=== PATIENT | male | born 1995 | race Caucasian/White ===

== ENCOUNTER 2020-06-30 12:36 | Emergency (ER) | payer OTHER ==
[2020-06-30 13:13] LABS: BILIRUBIN Negative (Negative); BLOOD Negative (Negative); CLARITY Clear (Clear); COLOR Yellow (Yellow); GLUCOSE Negative (Negative); KETONE Negative (Negative); LEUKO ESTERASE Negative (Negative); NITRITE Negative (Negative); SPECIFIC GRAVITY 1.025 (1.001-1.030)
[2020-06-30 13:23] LABS: EPITHELIAL CELLS 0-2; MUCOUS TRACE
[2020-06-30 13:39] LABS: BASO % 0.1 % (0.0-1.0); EOS % 0.1 % (1.0-4.0); HEMATOCRIT 42.4 % (42.0-52.0); LYMPH # 0.5 10*3/uL (1.3-4.4); LYMPH % 5.1 % (27.0-41.0); MEAN CELL VOLUME 91.6 fl (80.0-94.0); MEAN CORPUSCULAR HGB 30.9 pg (27.0-31.0); MEAN CORPUSCULAR HGB CONC 33.7 g/dl (33.0-37.0); MEAN PLATELET VOLUME 8.9 fl (9.6-12.3); MONO # 0.6 10*3/uL (0.1-1.0); MONO % 5.6 % (3.0-9.0); NEUT # 9.3 10*3/uL (2.3-7.9); NEUT % 88.7 % (47.0-73.0); PLATELET COUNT AUTOMATED 279 10*3/uL (130-400); RED BLOOD COUNT 4.63 10*6/uL (4.50-5.90); RED CELL DISTRI WIDTH 12.2 % (0-14.5); WHITE BLOOD COUNT 10.4 10*3/uL (4.8-10.8)
[2020-06-30 13:54] LABS: ALBUMIN 3.6 gm/dl (3.1-4.5); ALKALINE PHOSPHATASE 86 U/L (45-117); BUN 13 mg/dl (7-24); CHLORIDE 106 mmol/L (98-107); POTASSIUM 3.6 mmol/L (3.5-5.1); SGOT/AST 15 IU/L (3-35); SGPT/ALT 26 U/L (12-78); SODIUM 138 mmol/L (136-145); TOTAL PROTEIN 7.3 gm/dL (6.4-8.2)
[2020-06-30] MEDS ORDERED: ONDANSETRON4 MG SL (16:24)
== END 2020-06-30 16:31 | disposition home or self-care (01) ==
LOC: ED 12:36
PROVIDERS: Nurse Practitioner
DX: B34.9 Viral infection, unspecified (principal); Z20.822 Contact with and (suspected) exposure to COVID-19; R11.2 Nausea with vomiting, unspecified; R19.7 Diarrhea, unspecified; Z91.030 Bee allergy status

== ENCOUNTER 2022-04-25 00:16 | Emergency (ER) | payer OTHER ==
[~2022-04-25] VITALS: Ht 185.4 cm; Wt 135.6 kg
[~2022-04-25 00:16] MED LIST: ONDANSETRON4 MG SL
[2022-04-25] MEDS ORDERED: COZAAR25 M1 PO (00:25)
[2022-04-25] MEDS ORDERED: LOPRESSOR25 MG PO (00:26)
[2022-04-25] MEDS ORDERED: PRILOSEC20 M1 PO (00:26)
[2022-04-25 00:35] LABS: BASO # 0.1 10*3/uL (0.0-0.1); BASO % 0.3 % (0.0-1.0); EOS # 0.8 10*3/uL (0.0-0.4); EOS % 4.3 % (1.0-4.0); HEMATOCRIT 45.6 % (42.0-52.0); LYMPH # 4.2 10*3/uL (1.3-4.4); LYMPH % 23.1 % (27.0-41.0); MEAN CELL VOLUME 87.7 fl (80.0-94.0); MEAN CORPUSCULAR HGB CONC 35.3 g/dl (33.0-37.0); MEAN PLATELET VOLUME 8.9 fl (9.6-12.3); MONO # 1.2 10*3/uL (0.1-1.0); MONO % 6.8 % (3.0-9.0); NEUT # 11.7 10*3/uL (2.3-7.9); NEUT % 64.7 % (47.0-73.0); PLATELET COUNT AUTOMATED 356 10*3/uL (130-400); RED CELL DISTRI WIDTH 11.9 % (0-14.5); WHITE BLOOD COUNT 18.1 10*3/uL (4.8-10.8)
[2022-04-25 00:49] LABS: ALKALINE PHOSPHATASE 93 U/L (46-116); BUN 8 mg/dl (9-23); CHLORIDE 102 mmol/L (98-107); LIPASE 31 U/L (12-53); POTASSIUM 3.6 mmol/L (3.4-5.1); SGPT/ALT 20 U/L (10-49); TOTAL PROTEIN 8.2 gm/dL (6.0-8.0)
== END 2022-04-25 01:03 | disposition home or self-care (01) ==
LOC: ED 00:16
PROVIDERS: Internal Medicine
DX: R10.10 Upper abdominal pain, unspecified (principal); T50.995A Adverse effect of other drugs, medicaments and biological substances, initial encounter; D72.829 Elevated white blood cell count, unspecified; I10 Essential (primary) hypertension; Z91.030 Bee allergy status; Y92.89 Other specified places as the place of occurrence of the external cause

== ENCOUNTER → 2022-10-16 | Outpatient (CLI) | payer OTHER ==
[~2022-10-16] MED LIST changes: +COZAAR25 M1 PO; +LOPRESSOR25 MG PO; +PRILOSEC20 M1 PO
[2022-10-16 10:25] LABS: BASO % 0.4 % (0.0-1.0); EOS # 0.2 10*3/uL (0.0-0.4); HEMATOCRIT 43.6 % (42.0-52.0); LYMPH # 3.5 10*3/uL (1.3-4.4); LYMPH % 32.6 % (27.0-41.0); MEAN CELL VOLUME 89.5 fl (80.0-94.0); MEAN CORPUSCULAR HGB 31.2 pg (27.0-31.0); MEAN CORPUSCULAR HGB CONC 34.9 g/dl (33.0-37.0); MEAN PLATELET VOLUME 9.1 fl (9.6-12.3); MONO # 0.9 10*3/uL (0.1-1.0); MONO % 8.1 % (3.0-9.0); PLATELET COUNT AUTOMATED 307 10*3/uL (130-400); RED BLOOD COUNT 4.87 10*6/uL (4.50-5.90); RED CELL DISTRI WIDTH 12.4 % (0-14.5); WHITE BLOOD COUNT 10.8 10*3/uL (4.8-10.8)
[2022-10-16 10:52] LABS: FREE T4 1.06 ng/dl (0.89-1.76)
[2022-10-16 11:24] LABS: VITAMIN D, 25-HYDROXY 21.3 ng/mL (30-100)
[2022-10-17 04:06] LABS: SEX HORMONE BINDING GLOBULIN 23.2 nmol/L (16.5-55.9); THYROID PEROXIDASE (TPO) AB <9 IU/mL (0-34)
== END | disposition home or self-care (01) ==
LOC: LAB 09:14
PROVIDERS: ATTEND Nurse Practitioner Obstetrics & Gynecology
DX: E56.8 Deficiency of other vitamins (principal); E34.9 Endocrine disorder, unspecified; R53.83 Other fatigue

== ENCOUNTER 2023-07-02 12:57 | Emergency (ER) | payer OTHER ==
[~2023-07-02] VITALS: Ht 185.4 cm; Wt 136.1 kg
[2023-07-02] MEDS ORDERED: Metoclopramide Hydrochloride 10 MG/2 ML AMP IV ONE (13:00)
[2023-07-02] MEDS ORDERED: diphenhydrAMINE hydrochloride 50 MG/ML VIAL IV ONE (13:00)
[2023-07-02] MEDS ORDERED: MULTIVITAMIN CONCENTRATE (IV) 10 ML,Thiamine 100 MG,FOLIC ACID 1 MG in SODIUM CHLORIDE ... IV ONE (13:00)
[2023-07-02] MEDS ORDERED: ONDANSETRON4 MG SL (15:01)
== END 2023-07-02 15:16 | disposition home or self-care (01) ==
LOC: ED 12:57
DX: R11.2 Nausea with vomiting, unspecified (principal); A05.9 Bacterial foodborne intoxication, unspecified; I10 Essential (primary) hypertension; Z91.030 Bee allergy status